=== PATIENT | female | born 1955 | race Caucasian/White ===

== ENCOUNTER 2020-05-14 16:19 | Emergency (ER) | payer BC, SELFPAY ==
[~2020-05-14] VITALS: Ht 162.6 cm; Wt 79.5 kg
[~2020-05-14 16:19] MED LIST: AMLO5TAB4 PO; CHOL10002 PO; FLUO20CA39 PO; FLUO40CA; METO50TA16 PO; MULT-620 PO; OMEP20CA15 PO; RIVA20TA PO
[2020-05-14] MEDS ORDERED: aspirin 81mg tab.chew PO ONE (16:45)
[2020-05-14] MEDS ORDERED: nitroGLYCERIN 0.4mg SUBLingual tab SL PRN (16:45)
[2020-05-14 17:12] LABS: BASOPHILS # (AUTO) 0.1 X10'3 (0-0.2); BASOPHILS % (AUTO) 0.8 % (0-1); EOSINOPHILS # (AUTO) 0.1 X10'3 (0-0.9); EOSINOPHILS % (AUTO) 0.5 % (0-6); HEMATOCRIT 44.3 % (35.0-45.0); HEMOGLOBIN 15.3 g/dl (12.0-16.0); LYMPHOCYTES # (AUTO) 2.5 X10'3 (1.1-4.8); LYMPHOCYTES % (AUTO) 19.3 % (21-51); MEAN CORPUSCULAR HEMOGLOBIN 32.1 PG (27.0-31.0); MEAN CORPUSCULAR HGB CONC 34.6 g/dL (33.0-36.5); MEAN CORPUSCULAR VOLUME 92.9 FL (78-98); MEAN PLATELET VOLUME 7.2 FL (7.4-10.4); MONOCYTES % (AUTO) 7.3 % (2-12); NEUTROPHILS # (AUTO) 9.5 X10'3 (1.8-7.7); NEUTROPHILS % (AUTO) 72.1 % (42-75); PLATELET COUNT 373 X10'3 (140-440); RED BLOOD COUNT 4.77 X10'6 (4.20-5.60); RED CELL DISTRIBUTION WIDTH 13.5 % (11.5-14.5); WHITE BLOOD COUNT 13.2 X10'3 (4.5-11.0)
[2020-05-14 17:22] LABS: ALANINE AMINOTRANSFERASE 31 U/L (12-78); ALBUMIN 3.9 G/DL (3.4-5.0); ALBUMIN/GLOBULIN RATIO 1.2 (1.1-1.5); ALKALINE PHOSPHATASE 69 IU/L (46-116); ANION GAP 9 (8-16); ASPARTATE AMINO TRANSFERASE 29 U/L (10-37); BLOOD UREA NITROGEN 20 MG/DL (7-18); BUN/CREATININE RATIO 16.3 (6.6-38.0); CALCIUM 9.4 MG/DL (8.5-10.1); CHLORIDE 101 MMOL/L (99-107); CREATININE 1.23 MG/DL (0.40-0.90); GLUCOSE 96 MG/DL (70-104); POTASSIUM 3.8 MMOL/L (3.5-5.1); SODIUM 137 MMOL/L (135-145); TOTAL CARBON DIOXIDE 26.7 MMOL/L (24-32); TOTAL PROTEIN 7.1 G/DL (6.4-8.2); eGFR 44 ML/MIN
[2020-05-14] MEDS ORDERED: NITR0.4T51 SL (19:11)
[2020-05-14 20:30] VITALS: BP 139/87
== END 2020-05-14 20:31 | disposition home or self-care (01) ==
LOC: ER 16:20
DX: I20.8 Other forms of angina pectoris (principal); I48.91 Unspecified atrial fibrillation; F41.9 Anxiety disorder, unspecified; F32.9 Major depressive disorder, single episode, unspecified; I63.9 Cerebral infarction, unspecified
CPT/HCPCS: 36415; 71045; 80053; 83880; 84484; 85025; 85610; 93005; 99285

== ENCOUNTER 2020-05-22 10:50 | Observation (INO) | payer BC ==
[~2020-05-22] VITALS: Ht 157.5 cm; Wt 82.7 kg
[~2020-05-22 10:50] MED LIST changes: -FLUO40CA; +FLUO40CA PO; +NITR0.4T51 SL
[2020-05-22 11:34] LABS: BASOPHILS # (AUTO) 0.1 X10'3 (0-0.2); BASOPHILS % (AUTO) 0.7 % (0-1); EOSINOPHILS # (AUTO) 0.1 X10'3 (0-0.9); EOSINOPHILS % (AUTO) 0.9 % (0-6); HEMATOCRIT 45.8 % (35.0-45.0); HEMOGLOBIN 15.2 g/dl (12.0-16.0); LYMPHOCYTES # (AUTO) 2.7 X10'3 (1.1-4.8); LYMPHOCYTES % (AUTO) 27.3 % (21-51); MEAN CORPUSCULAR HEMOGLOBIN 30.9 PG (27.0-31.0); MEAN CORPUSCULAR HGB CONC 33.1 g/dL (33.0-36.5); MEAN CORPUSCULAR VOLUME 93.3 FL (78-98); MEAN PLATELET VOLUME 7.5 FL (7.4-10.4); MONOCYTES # (AUTO) 0.5 X10'3 (0-0.9); MONOCYTES % (AUTO) 5.5 % (2-12); NEUTROPHILS # (AUTO) 6.4 X10'3 (1.8-7.7); NEUTROPHILS % (AUTO) 65.6 % (42-75); PLATELET COUNT 323 X10'3 (140-440); RED BLOOD COUNT 4.91 X10'6 (4.20-5.60); WHITE BLOOD COUNT 9.8 X10'3 (4.5-11.0)
[2020-05-22 11:47] LABS: PARTIAL THROMBOPLASTIN TIME 28 SECONDS (22-32)
[2020-05-22 11:52] LABS: ALANINE AMINOTRANSFERASE 32 U/L (12-78); ALBUMIN/GLOBULIN RATIO 1.2 (1.1-1.5); ALKALINE PHOSPHATASE 81 IU/L (46-116); ANION GAP 8 (8-16); ASPARTATE AMINO TRANSFERASE 28 U/L (10-37); BILIRUBIN,TOTAL 0.8 MG/DL (0.1-1.0); BLOOD UREA NITROGEN 15 MG/DL (7-18); BUN/CREATININE RATIO 18.1 (6.6-38.0); CALCIUM 9.3 MG/DL (8.5-10.1); CHLORIDE 101 MMOL/L (99-107); CREATININE 0.83 MG/DL (0.40-0.90); GLUCOSE 102 MG/DL (70-104); POTASSIUM 4.2 MMOL/L (3.5-5.1); SODIUM 138 MMOL/L (135-145); TOTAL CARBON DIOXIDE 29.3 MMOL/L (24-32); TOTAL PROTEIN 7.4 G/DL (6.4-8.2); eGFR 69 ML/MIN
[2020-05-22 11:53] LABS: TROPONIN I < 0.04 NG/ML (0.0-0.05)
--- NOTE | 2020-05-22 12:20 | NUR ---
relieving RN for break, pt is being evaluated by neuro tele provider
--- NOTE | 2020-05-22 12:35 | NUR ---
pt up to bedside commode without assist, slightly unsteady on feet, no dizziness, no lightheadedness, pt unable to give urine sample at this time
--- NOTE | 2020-05-22 12:36 | NUR ---
Patient resting comfortably in bed with boyfriend at bedside.
[2020-05-22 12:49] LABS: ETHANOL < 0.010 GM/DL (0.0-0.010)
[2020-05-22 13:43] LABS: CLARITY,URINE SLIGHTLY CLOUDY (Clear); COLOR,URINE YELLOW (Yellow); GLUCOSE, URINE NEGATIVE (Neg); KETONES,URINE NEGATIVE (Neg); LEUKOCYTE ESTERASE ,URINE NEGATIVE (Neg); NITRITES, URINE NEGATIVE (Neg); OCCULT BLOOD,URINE SMALL (Neg); PH,URINE 5.5 (4.8-8.0); PROTEIN,URINE NEGATIVE (Neg); UROBILINOGEN,URINE 0.2 E.U/dL (0.2-1.0)
[2020-05-22 13:45] LABS: UA COLLECTION TYPE CLN CATCH MIDSTREAM
[2020-05-22 13:49] LABS: MUCUS STRANDS MANY /LPF (Neg); SQUAMOUS EPITHELIAL CELL,UR FEW /LPF (FEW)
[2020-05-22 13:50] LABS: TRANSITIONAL EPI CELLS,URINE FEW /HPF; URINE AMPHETAMINE SCREEN NEGATIVE (Neg); URINE BARBITUATE SCREEN NEGATIVE (Neg); URINE BENZODIAZEPINES SCREEN NEGATIVE (Neg); URINE CANNABINOID SCREEN NEGATIVE (Neg); URINE COCAINE SCREEN NEGATIVE (Neg); URINE METHADONE SCREEN NEGATIVE (Neg); URINE OPIATE SCREEN POSITIVE (Neg); URINE PHENCYCLIDINE SCREEN NEGATIVE (Neg)
[2020-05-22 13:52] LABS: COARSE GRANULAR CAST 0-3 /LPF (NEGATIVE)
[2020-05-22 13:53] LABS: BACTERIA,URINE NONE SEEN /HPF (Neg); WBC,URINE 0-4 /HPF (0-4)
[2020-05-22] MEDS ORDERED: AMLO5TAB16 PO (17:02)
[2020-05-22] MEDS ORDERED: METO100T14 PO (17:03)
[2020-05-22] MEDS ORDERED: HYDR12.55 PO (17:04)
[2020-05-22] MEDS ORDERED: GABA-530 PO (17:04)
[2020-05-22] MEDS ORDERED: OMEP40CA13 PO (17:05)
[2020-05-22] MEDS ORDERED: NITR0.4T48 SL (17:07)
[2020-05-22] MEDS ORDERED: ATOR40TA72 PO (17:07)
[2020-05-22] MEDS ORDERED: POTASSIUM 99 MG PO (17:10)
[2020-05-22] MEDS ORDERED: iohexol 350MG/ML 100ml bottle IV ONE (17:33)
[2020-05-22] MEDS ORDERED: potassium Cl 20 mEq SR tablet PO PRN ×2 (19:55)
[2020-05-22] MEDS ORDERED: acetaminophen 325mg tablet PO PRN ×2 (19:55)
[2020-05-22] MEDS ORDERED: magnesium Cl slow-release 64mg tablet PO PRN (19:55)
[2020-05-22] MEDS ORDERED: ondansetron/PF 4mg/2ml inj IV PRN (19:55)
[2020-05-22] MEDS ORDERED: magnesium hydroxide 30ml (MOM) UD suspension PO PRN (19:55)
[2020-05-22] MEDS ORDERED: potassium CL 10mEq/100ml bag 100 ML IV PRN ×2 (19:55)
[2020-05-22] MEDS ORDERED: mag hydrox/Alum hydrox/simeth 30ml oral suspension PO PRN (19:55)
[2020-05-22] MEDS ORDERED: magnesium 4gm in 100ml NS 100 ML IV PRN (19:55)
[2020-05-22] MEDS ORDERED: magnesium 2GM in 50ml NS 50 ML IV PRN (19:55)
[2020-05-22 20:17] LABS: HEMOGLOBIN A1C 5.2 % (4.5-6.2)
[2020-05-22] MEDS: K and/or MAG REPLACEMENT MC SCH (21:22)
[2020-05-22 22:00] VITALS: BP 117/94
--- NOTE | 2020-05-23 00:10 | NUR ---
oriented pt to room 4011B. call light in reach. tabs alarm active.
--- NOTE | 2020-05-23 02:09 | NUR ---
son Ja [phone] boyfriend Ion [phone]
[2020-05-23 02:18] VITALS: BP 126/92
--- NOTE | 2020-05-23 05:58 | NUR ---
reported to days. noted pt has MRI, echo and carotid this am ordered. tabs alarm on. pt does not use call light.
[2020-05-23 06:00] VITALS: BP 125/84
--- NOTE | 2020-05-23 06:00 | NUR ---
Patient in room ORTHO 4011. I have received report from Glynn LEMONS and had the opportunity to ask questions and assume patient care.
[2020-05-23 06:30] LABS: BASOPHILS % (AUTO) 0.6 % (0-1); EOSINOPHILS # (AUTO) 0.1 X10'3 (0-0.9); HEMATOCRIT 43.1 % (35.0-45.0); HEMOGLOBIN 14.8 g/dl (12.0-16.0); LYMPHOCYTES % (AUTO) 25.4 % (21-51); MEAN CORPUSCULAR HEMOGLOBIN 31.9 PG (27.0-31.0); MEAN CORPUSCULAR HGB CONC 34.2 g/dL (33.0-36.5); MEAN CORPUSCULAR VOLUME 93.3 FL (78-98); MEAN PLATELET VOLUME 7.4 FL (7.4-10.4); MONOCYTES # (AUTO) 0.4 X10'3 (0-0.9); MONOCYTES % (AUTO) 5.4 % (2-12); NEUTROPHILS # (AUTO) 5.4 X10'3 (1.8-7.7); NEUTROPHILS % (AUTO) 67.6 % (42-75); PLATELET COUNT 301 X10'3 (140-440); RED BLOOD COUNT 4.62 X10'6 (4.20-5.60); RED CELL DISTRIBUTION WIDTH 13.5 % (11.5-14.5)
[2020-05-23 07:01] LABS: ALANINE AMINOTRANSFERASE 28 U/L (12-78); ALBUMIN 3.5 G/DL (3.4-5.0); ALBUMIN/GLOBULIN RATIO 1.1 (1.1-1.5); ALKALINE PHOSPHATASE 71 IU/L (46-116); ANION GAP 8 (8-16); ASPARTATE AMINO TRANSFERASE 23 U/L (10-37); BLOOD UREA NITROGEN 9 MG/DL (7-18); BUN/CREATININE RATIO 11.5 (6.6-38.0); CALCIUM 9.8 MG/DL (8.5-10.1); CHLORIDE 102 MMOL/L (99-107); CHOL/HDL RATIO 3.3 (0.00-4.99); CHOLESTEROL 170 MG/DL (0-200); CREATININE 0.78 MG/DL (0.40-0.90); GLUCOSE 105 MG/DL (70-104); HDL CHOLESTEROL 52 MG/DL (35-60); LDL CHOLESTEROL 112 MG/DL (50-100); MAGNESIUM 1.9 MG/DL (1.5-2.4); POTASSIUM 3.5 MMOL/L (3.5-5.1); SODIUM 139 MMOL/L (135-145); TOTAL PROTEIN 6.6 G/DL (6.4-8.2); TRIGLYCERIDES 96 MG/DL (20-135); eGFR 74 ML/MIN
[2020-05-23] MEDS ORDERED: FLUoxetine 20mg capsule PO SCH (08:00)
[2020-05-23] MEDS ORDERED: amLODIPine 5mg tablet PO SCH (08:00)
[2020-05-23] MEDS: K and/or MAG REPLACEMENT MC SCH (08:00)
[2020-05-23] MEDS ORDERED: atorvastatin 20mg tablet PO SCH (08:00)
[2020-05-23] MEDS ORDERED: metoprolol tartrate 50mg tablet PO SCH (08:00)
[2020-05-23] MEDS ORDERED: HYDROchlorothiazide 12.5mg capsule PO SCH (08:00)
[2020-05-23] MEDS ORDERED: gabapentin 100mg capsule PO SCH (08:00)
[2020-05-23] MEDS ORDERED: LORazepam 2 mg/ml vial IM ONE (09:45)
[2020-05-23 10:00] VITALS: BP 130/89
[2020-05-23] MEDS ORDERED: LORazepam 2 mg/ml vial IV ONE (10:25)
--- NOTE | 2020-05-23 12:59 | NUR ---
PAGER ID: [phone] MESSAGE: [id number] Tangela Naik. MRI negative. Echo EF 65%. Waiting for Carotid US. [place] [address]
--- NOTE | 2020-05-23 15:13 | NUR ---
Patient stable for discharge home today. All discharge instructions given to patient and questions answered. Stroke packet given to patient. IV removed with canula intact.
[2020-05-23] MEDS ORDERED: rivaroxaban 20mg tablet PO SCH (17:00)
== END 2020-05-23 15:12 | disposition home or self-care (01) ==
LOC: ER 10:51 → ED HOLD 19:54 → ORTHO 4S 21:47
PROVIDERS: ADMIT Family Medicine; ATTEND Family Medicine
DX: G45.9 Transient cerebral ischemic attack, unspecified (principal); R41.82 Altered mental status, unspecified; I48.91 Unspecified atrial fibrillation; F41.9 Anxiety disorder, unspecified; F32.9 Major depressive disorder, single episode, unspecified; Z86.73 Personal history of transient ischemic attack (TIA), and cerebral infarction without residual deficits; E78.5 Hyperlipidemia, unspecified; Z79.01 Long term (current) use of anticoagulants; Z79.899 Other long term (current) drug therapy
CPT/HCPCS: 36415; 70450; 70496; 70498; 70551; 71045; 80053; 80061; 80305; 80320; 81001; 83036; 83735; 84484; 85025; 85610; 85730; 87081; 92508; 92616; 93005; 93306; 93880; 96374; 97110; 97161; 97530; 99285; G0378; J2060; Q9967

== ENCOUNTER 2021-12-28 12:37 | Emergency (ER) | payer BC, MEDICARE ==
[~2021-12-28] VITALS: Ht 160 cm; Wt 85.5 kg
[~2021-12-28 12:37] MED LIST changes: +AMLO5TAB PO; -AMLO5TAB4 PO; +ATOR-2 PO; -CHOL10002 PO; -FLUO20CA39 PO; -FLUO40CA PO; +FLUO40CA10 PO; +GABA-530 PO; +HYDR12.55 PO; +METO100T14 PO; -METO50TA16 PO; -MULT-620 PO; -NITR0.4T51 SL; +NITR1PAT68 TOP; -OMEP20CA15 PO; +OMEP40CA21 PO
[2021-12-28 13:24] LABS: BASOPHILS # (AUTO) 0.1 X10'3 (0-0.2); BASOPHILS % (AUTO) 0.7 % (0-1); EOSINOPHILS # (AUTO) 0.1 X10'3 (0-0.9); HEMATOCRIT 39.1 % (35.0-45.0); LYMPHOCYTES # (AUTO) 2.5 X10'3 (1.1-4.8); LYMPHOCYTES % (AUTO) 35.1 % (21-51); MEAN CORPUSCULAR HEMOGLOBIN 29.9 PG (27.0-31.0); MEAN CORPUSCULAR HGB CONC 33.3 g/dL (33.0-36.5); MEAN CORPUSCULAR VOLUME 89.6 FL (78-98); MEAN PLATELET VOLUME 7.7 FL (7.4-10.4); MONOCYTES # (AUTO) 0.6 X10'3 (0-0.9); NEUTROPHILS % (AUTO) 55.2 % (42-75); PLATELET COUNT 268 X10'3 (140-440); RED BLOOD COUNT 4.36 X10'6 (4.20-5.60); RED CELL DISTRIBUTION WIDTH 13.9 % (11.5-14.5); WHITE BLOOD COUNT 7.2 X10'3 (4.5-11.0)
[2021-12-28 13:38] LABS: ALANINE AMINOTRANSFERASE 28 U/L (12-78); ALBUMIN 3.5 G/DL (3.4-5.0); ALBUMIN/GLOBULIN RATIO 1.2 (1.1-1.5); ALKALINE PHOSPHATASE 65 IU/L (46-116); ANION GAP 7 (8-16); ASPARTATE AMINO TRANSFERASE 31 U/L (10-37); BILIRUBIN,TOTAL 1.2 MG/DL (0.1-1.0); BLOOD UREA NITROGEN 11 MG/DL (7-18); BUN/CREATININE RATIO 12.5 (6.6-38.0); CALCIUM 8.8 MG/DL (8.5-10.1); CHLORIDE 107 MMOL/L (99-107); CREATININE 0.88 MG/DL (0.40-0.90); GLUCOSE 91 MG/DL (70-104); POTASSIUM 3.4 MMOL/L (3.5-5.1); SODIUM 140 MMOL/L (135-145); TOTAL PROTEIN 6.4 G/DL (6.4-8.2); eGFR 64 ML/MIN
[2021-12-28] MEDS ORDERED: potassium Cl 20 mEq SR tablet PO ONE (14:40)
--- NOTE | 2021-12-28 15:45 | NUR ---
pt informed that provider would like her to stay in the hospital but pt is refusing. states she will follow up with her pcp this week. contact information provided for dr. rodriges. pt verbalized understanding.
[2021-12-28 16:10] VITALS: BP 132/68
== END 2021-12-28 16:25 | disposition home or self-care (01) ==
LOC: ER 12:37
DX: R07.89 Other chest pain (principal); F41.9 Anxiety disorder, unspecified; I48.91 Unspecified atrial fibrillation; I25.10 Atherosclerotic heart disease of native coronary artery without angina pectoris; I11.0 Hypertensive heart disease with heart failure; I50.9 Heart failure, unspecified; E78.00 Pure hypercholesterolemia, unspecified; I25.2 Old myocardial infarction; Z86.73 Personal history of transient ischemic attack (TIA), and cerebral infarction without residual deficits; Z90.710 Acquired absence of both cervix and uterus; Z98.890 Other specified postprocedural states; Z79.899 Other long term (current) drug therapy
CPT/HCPCS: 36415; 71045; 80053; 83880; 84484; 85025; 93005; 99285

== ENCOUNTER 2022-01-28 12:21 | Day surgery (SDC) | payer MEDICARE ==
[2022-01-23 12:05] LABS: BASOPHILS % (AUTO) 0.4 % (0-1); EOSINOPHILS # (AUTO) 0.1 X10'3 (0-0.9); EOSINOPHILS % (AUTO) 1.5 % (0-6); HEMATOCRIT 45.1 % (35.0-45.0); HEMOGLOBIN 15.1 g/dl (12.0-16.0); LYMPHOCYTES # (AUTO) 2.6 X10'3 (1.1-4.8); LYMPHOCYTES % (AUTO) 36.2 % (21-51); MEAN CORPUSCULAR HEMOGLOBIN 29.6 PG (27.0-31.0); MEAN CORPUSCULAR HGB CONC 33.5 g/dL (33.0-36.5); MEAN CORPUSCULAR VOLUME 88.6 FL (78-98); MEAN PLATELET VOLUME 7.3 FL (7.4-10.4); MONOCYTES # (AUTO) 0.5 X10'3 (0-0.9); MONOCYTES % (AUTO) 7.1 % (2-12); NEUTROPHILS % (AUTO) 54.8 % (42-75); PLATELET COUNT 345 X10'3 (140-440); RED BLOOD COUNT 5.09 X10'6 (4.20-5.60); RED CELL DISTRIBUTION WIDTH 13.6 % (11.5-14.5); WHITE BLOOD COUNT 7.2 X10'3 (4.5-11.0)
[2022-01-23 12:06] LABS: APTT 26 SECONDS (22-32)
[2022-01-23 12:08] LABS: ALBUMIN 3.7 G/DL (3.4-5.0); ANION GAP 11 (8-16); BLOOD UREA NITROGEN 15 MG/DL (7-18); CHLORIDE 104 MMOL/L (99-107); CHOL/HDL RATIO 2.7 (0.00-4.99); CHOLESTEROL 174 MG/DL (0-200); CREATININE 0.88 MG/DL (0.40-0.90); GLUCOSE 82 MG/DL (70-104); HDL CHOLESTEROL 64 MG/DL (35-60); LDL CHOLESTEROL 92 MG/DL (50-100); POTASSIUM 3.7 MMOL/L (3.5-5.1); SODIUM 141 MMOL/L (135-145); TOTAL CARBON DIOXIDE 26.4 MMOL/L (24-32); TRIGLYCERIDES 126 MG/DL (20-135); eGFR 64 ML/MIN
[2022-01-28] VITALS (11 sets, daily range): BP systolic 98–143; BP diastolic 54–88
[~2022-01-28] VITALS: Ht 162.6 cm; Wt 85.3 kg
[~2022-01-28 12:21] MED LIST changes: +iohexol 350MG/ML 100ml bottle IV ONE
[2022-01-28] MEDS ORDERED: diphenhydrAMINE 25mg capsule PO PRN (12:40)
[2022-01-28] MEDS ORDERED: LIDOcaine/PRILOcaine 5gm cream TP ONE (12:40)
[2022-01-28] MEDS ORDERED: LORazepam 0.5 MG tablet PO PRN (12:40)
[2022-01-28] MEDS ORDERED: normal saline 1,000 ML IV SCH (12:40)
[2022-01-28] MEDS ORDERED: SUMA100T16 PO (12:52)
[2022-01-28] MEDS ORDERED: ALPR0.255 PO (12:52)
[2022-01-28] MEDS ORDERED: verapamil 2.5 mg/ml inj IV ONE (14:03)
[2022-01-28] MEDS ORDERED: iohexol 350MG/ML 100ml bottle IV ONE (14:03)
[2022-01-28] MEDS ORDERED: midazolam 1 mg/ML 2ml injection ONE (14:03)
[2022-01-28] MEDS ORDERED: nitroGLYCERIN-Tridil 50MG/D5W 250 ML IV ONE (14:03)
[2022-01-28] MEDS ORDERED: heparin 1,000unit/ml 10ml vial 10 ML ONE (14:03)
[2022-01-28] MEDS ORDERED: fentaNYL/PF 50MCG/1 ML 2ML syringe ONE (14:03)
[2022-01-28] MEDS ORDERED: LIDOcaine 1% (10mg/ml) 2ml vial ONE (14:03)
[2022-01-28] MEDS ORDERED: ondansetron/PF 4mg/2ml inj IV PRN (15:55)
[2022-01-28] MEDS ORDERED: OXAZEpam 15mg capsule PO PRN (15:55)
[2022-01-28] MEDS ORDERED: nitroGLYCERIN 0.4mg SUBLingual tab SL PRN (15:55)
[2022-01-28] MEDS ORDERED: proCHLORperazine 10 MG/2 ml inj IV PRN (15:55)
== END 2022-01-28 17:30 | disposition home or self-care (01) ==
LOC: SSTAY O 12:21
PROVIDERS: ATTEND Internal Medicine Interventional Cardiology
DX: R07.9 Chest pain, unspecified (principal); I48.91 Unspecified atrial fibrillation; F32.9 Major depressive disorder, single episode, unspecified; E78.5 Hyperlipidemia, unspecified; I34.0 Nonrheumatic mitral (valve) insufficiency; G43.909 Migraine, unspecified, not intractable, without status migrainosus; Z86.73 Personal history of transient ischemic attack (TIA), and cerebral infarction without residual deficits; Z79.899 Other long term (current) drug therapy; Z87.891 Personal history of nicotine dependence
CPT/HCPCS: 36415; 80048; 80061; 85025; 85610; 85730; 93005; 93458; 99152; C1769; C1894; J1644; J2250; J3010; J3490; J7030; Q0163; Q9967; A4620; A5120; A6258; A6402